=== PATIENT | female | born 2000 | race Caucasian/White ===

== ENCOUNTER 2024-01-07 21:17 | Emergency (ER) | payer BC ==
[~2024-01-07] VITALS: Ht 170.2 cm; Wt 63.5 kg
[2024-01-07 21:41] VITALS: BP_SYST 126; PULSE 62; RESP 18; TEMP 98; O2SAT 98
[2024-01-08 02:07] VITALS: BP_SYST 126; PULSE 62; RESP 18; TEMP 98; O2SAT 98
== END 2024-01-08 02:09 | disposition home or self-care (01) ==
LOC: SED 21:17
DX: S09.8XXA Other specified injuries of head, initial encounter (principal); M25.512 Pain in left shoulder; W18.39XA Other fall on same level, initial encounter; Y93.89 Activity, other specified; Y92.89 Other specified places as the place of occurrence of the external cause; Y99.8 Other external cause status
CPT/HCPCS: 70450-TC; 99284